=== PATIENT | female | born 1980 | race Caucasian/White ===

== ENCOUNTER 2020-03-04 16:18 | Emergency (ER) | payer OTHER ==
[~2020-03-04] VITALS: Ht 165.1 cm; Wt 72.6 kg
[~2020-03-04 16:18] MED LIST: AZITHROMYCIN 2250 MG PO; CLEOCIN HCL150 MG PO; CLEOCIN HCL300 MG PO; ERY-TAB250 MG PO; FLUZONE 2045 MCG/011; MEDROLDOSEPACK PO; NEXIUM40 MG PO; PNEUMOVAX25 MCG/0.5; PREMARIN0.3 MG; TRAMADOL 50 MG50 MG PO; ULTRAM 50MG TAB50 MG PO; VICODIN 5-5001 EACH PO; ZOFRAN 4 MG ORAL4 MG PO
[2020-03-04] MEDS ORDERED: PREDNISONE 20 M20 MG PO (18:24)
[2020-03-04] MEDS ORDERED: NORCO 5-325 TA1 EAC2 PO (18:24)
[2020-03-04] MEDS ORDERED: PROAIR HFA8.5 GM INH (18:24)
[2020-03-04] MEDS ORDERED: ZPAK PO (18:24)
[2020-03-04 18:48] VITALS: BP 125/78
== END 2020-03-04 18:49 | disposition home or self-care (01) ==
LOC: M.ERS 16:18
DX: J18.9 Pneumonia, unspecified organism (principal); M94.0 Chondrocostal junction syndrome [Tietze]; F17.210 Nicotine dependence, cigarettes, uncomplicated; Z88.1 Allergy status to other antibiotic agents; Z88.6 Allergy status to analgesic agent; Z90.49 Acquired absence of other specified parts of digestive tract

== ENCOUNTER 2020-10-10 14:06 | Emergency (ER) | payer OTHER ==
[~2020-10-10] VITALS: Ht 165.1 cm; Wt 68.0 kg
[~2020-10-10 14:06] MED LIST changes: +NORCO 5-325 TA1 EAC2 PO; +PREDNISONE 20 M20 MG PO; +PROAIR HFA8.5 GM INH; +ZPAK PO
[2020-10-10] MEDS ORDERED: FLEXERIL PO (14:41)
[2020-10-10] MEDS ORDERED: IBUPROFEN 800800 M1 PO (14:41)
[2020-10-10 14:52] VITALS: BP 145/92
== END 2020-10-10 14:53 | disposition home or self-care (01) ==
LOC: M.ERS 14:06
DX: S39.012A Strain of muscle, fascia and tendon of lower back, initial encounter (principal); N80.9 Endometriosis, unspecified; F17.210 Nicotine dependence, cigarettes, uncomplicated; Z90.710 Acquired absence of both cervix and uterus; Z90.49 Acquired absence of other specified parts of digestive tract; Z88.1 Allergy status to other antibiotic agents; Z88.5 Allergy status to narcotic agent; X50.9XXA Other and unspecified overexertion or strenuous movements or postures, initial encounter; Y93.89 Activity, other specified; Y92.89 Other specified places as the place of occurrence of the external cause; Y99.8 Other external cause status

== ENCOUNTER 2020-11-05 17:01 | Emergency (ER) | payer OTHER ==
[~2020-11-05] VITALS: Ht 167.6 cm; Wt 68.0 kg
[~2020-11-05 17:01] MED LIST changes: +FLEXERIL PO; +IBUPROFEN 800800 M1 PO
[2020-11-05 17:38] VITALS: BP 117/87
== END 2020-11-05 17:39 | disposition home or self-care (01) ==
LOC: M.ERS 17:01
DX: Z20.822 Contact with and (suspected) exposure to COVID-19 (principal); N80.9 Endometriosis, unspecified; F17.210 Nicotine dependence, cigarettes, uncomplicated; Z90.49 Acquired absence of other specified parts of digestive tract; Z90.710 Acquired absence of both cervix and uterus